=== PATIENT | female | born 2000 | race Caucasian/White ===

== ENCOUNTER 2018-09-30 08:00 | Day surgery (SDC) | payer BC ==
[~2018-09-30] VITALS: Ht 162.6 cm; Wt 60.8 kg
[~2018-09-30 08:00] MED LIST: NORE1PAT7 TD
[2018-09-30] MEDS ORDERED: LACTATED RINGERS 1,000 ML IV SCH (09:54)
[2018-09-30] MEDS ORDERED: GABAPENTIN 300 MG CAPSULE PO ONE (10:00)
[2018-09-30] MEDS ORDERED: DIAZEPAM 5 MG TABLET PO ONE (10:00)
[2018-09-30] MEDS ORDERED: ACETAMINOPHEN 500 MG TABLET PO ONE (10:00)
[2018-09-30] MEDS ORDERED: ONDANSETRON ODT 8 MG PO ONE (10:00)
[2018-09-30 10:06] VITALS: BP 133/86
[2018-09-30 10:32] LABS: HCG UR SG 1.026 (1.003-1.030)
[2018-09-30] MEDS ORDERED: PROMETHAZINE 25 MG/ML, 1ML IV PRN (11:00)
[2018-09-30] MEDS ORDERED: FENTANYL PF 100 MCG/2ML IV PRN (11:00)
[2018-09-30] MEDS ORDERED: KETOROLAC 30 MG/1 ML IV PRN (11:00)
[2018-09-30] MEDS ORDERED: MIDAZOLAM 1 MG/ML, 2ML IV PRN (11:00)
[2018-09-30] MEDS ORDERED: SCOPOLAMINE PATCH, 1.5MG PATCH.TD72 TD PRN (11:00)
[2018-09-30] MEDS ORDERED: MEPERIDINE/PF 25MG/0.5ML IVPush PRN (11:00)
[2018-09-30] MEDS ORDERED: OXYcodone 5 MG/5 ML ORAL.SOL UDC PO PRN (11:00)
[2018-09-30] MEDS ORDERED: ONDANSETRON 2MG/ML, 2ML IV PRN (11:00)
[2018-09-30] MEDS ORDERED: HYDROmorphone 2 MG/ML, 1ML IVPush PRN (11:00)
[2018-09-30] MEDS ORDERED: ALBUTEROL/IPRATROPIUM 2.5MG/0.5MG, 3 ML NPPB PRN (11:00)
[2018-09-30] MEDS ORDERED: MIDAZOLAM 1 MG/ML, 2ML ONE (11:08)
[2018-09-30] MEDS ORDERED: FENTANYL PF 100 MCG/2ML ONE (11:08)
[2018-09-30] MEDS ORDERED: BUPIVACAINE/PF-EPI 0.5% 1:200K ONE (11:27)
[2018-09-30] MEDS ORDERED: PROPOFOL 10 MG/ML, 50ML ONE (11:47)
[2018-09-30] MEDS ORDERED: PROPOFOL 10 MG/ML, 20ML ONE (11:47)
[2018-09-30] MEDS ORDERED: CEFAZOLIN 1,000 MG ONE (11:47)
[2018-09-30] MEDS ORDERED: DEXAMETHASONE 4 MG/ML, 5ML ONE (11:47)
[2018-09-30] MEDS ORDERED: KETOROLAC 30 MG/1 ML ONE (12:49)
== END 2018-09-30 14:35 | disposition home or self-care (01) ==
LOC: OUT 08:00
PROVIDERS: ATTEND Podiatrist Foot & Ankle Surgery
DX: S93.315A Dislocation of tarsal joint of left foot, initial encounter (principal); M21.42 Flat foot [pes planus] (acquired), left foot; X58.XXXA Exposure to other specified factors, initial encounter; Y93.89 Activity, other specified; Y92.89 Other specified places as the place of occurrence of the external cause; Y99.8 Other external cause status; Z88.1 Allergy status to other antibiotic agents; Z88.8 Allergy status to other drugs, medicaments and biological substances; Z87.891 Personal history of nicotine dependence
CPT/HCPCS: 0335T; 73620; 76000; 81025; C1713; C1769; J0690; J1100; J1885; J2250; J2704; J3010; J7120; Q0162